=== PATIENT | female | born 1965 | race Caucasian/White ===

== ENCOUNTER 2019-01-20 11:36 | Day surgery (SDC) | payer OTHER ==
[~2019-01-20] VITALS: Ht 152.4 cm; Wt 66.0 kg
[2019-01-20 12:48] VITALS: Ht 152.4 cm; Wt 66.0 kg
[2019-01-20] MEDS ORDERED: METFORMIN (12:55)
[2019-01-20] MEDS ORDERED: GLYBURIDE (12:55)
[2019-01-20] MEDS ORDERED: NAPROXEN (12:55)
[2019-01-20 13:20] VITALS: BP 150/79; PULSE 93; RESP 16
[2019-01-20] MEDS ORDERED: MIDAZOLAM 1 MG/ML 2 ML INJ ONE ×2 (14:34→14:35)
[2019-01-20] MEDS ORDERED: FENTAnyl 50 MCG/ML VIAL ONE (14:34)
[2019-01-20 14:48] VITALS: BP 159/79; PULSE 82; RESP 15
== END 2019-01-20 15:46 | disposition home or self-care (01) ==
LOC: GIL 11:36
PROVIDERS: ATTEND Internal Medicine Gastroenterology
DX: Z12.11 Encounter for screening for malignant neoplasm of colon (principal); K64.8 Other hemorrhoids; E11.9 Type 2 diabetes mellitus without complications
CPT/HCPCS: 45378; 82962; J2250; J3010; Z7610